=== PATIENT | female | born 1930 | race Caucasian/White ===

== ENCOUNTER 2017-04-15 20:18 | Inpatient (IN) | payer MEDICARE ==
[~2017-04-15] VITALS: Ht 157.5 cm; Wt 58.1 kg
[2017-04-15 21:38] LABS: HEMOGLOBIN 12.5 gm/dl (12.3-15.3); RED BLOOD COUNT 4.54 M/UL (4.00-5.10); WHITE BLOOD COUNT 11.3 K/UL (4.5-11.0)
[2017-04-15 21:53] LABS: BUN/CREATININE RATIO 14 (0-10)
[2017-04-16] MEDS ORDERED: LISINOPRIL20 MG PO (10:02)
[2017-04-16] MEDS ORDERED: LORTAB 7.5-3251 EACH PO (10:02)
[2017-04-16] MEDS ORDERED: AMOXICILLIN500 MG PO (10:02)
[2017-04-16] MEDS ORDERED: TRIAMTERENE-HC1 EAC1 PO (10:03)
[2017-04-16] MEDS ORDERED: LOPRESSOR50 MG PO (10:04)
[2017-04-16] MEDS ORDERED: COUMADIN 5MG TAB5 MG PO (10:04)
[2017-04-16] MEDS ORDERED: COUMADIN 2.5MG2.5 MG PO (10:05)
[2017-04-17 05:24] LABS: BUN/CREATININE RATIO 14 (0-10)
== END 2017-04-17 18:00 | disposition home or self-care (01) | DRG 641 ==
LOC: ER1 20:18 → ZEROF 04-16 00:20 → M/S 04-16 00:20 → ZEROF 04-16 00:20 → M/S 04-16 08:57
PROVIDERS: Emergency Medicine; Hospitalist; ADMIT Internal Medicine
DX: E87.1 Hypo-osmolality and hyponatremia (principal); E86.0 Dehydration; I48.0 Paroxysmal atrial fibrillation; R11.2 Nausea with vomiting, unspecified; I10 Essential (primary) hypertension; E87.6 Hypokalemia; Z79.01 Long term (current) use of anticoagulants; Z79.891 Long term (current) use of opiate analgesic; Z79.899 Other long term (current) drug therapy; Z96.641 Presence of right artificial hip joint; Z98.890 Other specified postprocedural states; Z80.7 Family history of other malignant neoplasms of lymphoid, hematopoietic and related tissues
CPT/HCPCS: ECHO; 36415; 80048; 80053; 81001; 83930; 83935; 84132; 84295; 84300; 85025; 85610; 93005; 93306; 96365; 96375; 99284; J0696; J2405; J7050